=== PATIENT | male | born 1965 ===

== ENCOUNTER 2025-03-21 00:44 | Inpatient (IN) | payer OTHER ==
[2025-03-21] VITALS (9 sets, daily range): BP systolic 130–148; BP diastolic 73–99
[~2025-03-21] VITALS: Ht 182.9 cm; Wt 116.7 kg
[~2025-03-21 00:44] MED LIST: HYDROCODON-ACE1 EAC8 PO; METOPROLOL SUCC25 MG PO; MULTI VITAMIN1 EACH PO
[2025-03-21 01:40] LABS: BASOPHILS 0.7 % (0.2-1.2); EOSINOPHILS 1.6 % (0.8-7.0); LYMPHOCYTES 19.5 % (21.8-53.1); MCH 30.5 PG (25.7-32.2); MCHC 35.6 g/dL (32.3-36.5); MCV 85.7 fL (79.0-92.2); MONOCYTES 10.5 % (5.3-12.2); NEUTROPHILS 67.5 % (34.0-67.9); RBC 4.75 M/uL (4.63-6.08)
[2025-03-21] MEDS ORDERED: LACTATED RINGER'S 1,000 ML IV ONE (01:45)
[2025-03-21] MEDS ORDERED: LO-DOSE ASPIRIN81 MG PO (01:45)
[2025-03-21] MEDS ORDERED: VITAMIN D325 MCG PO (01:46)
[2025-03-21] MEDS ORDERED: NORVASC10 MG PO (01:46)
[2025-03-21 01:56] LABS: ALT (SGPT) 46.0 U/L (14-59); AST (SGOT) 11.0 U/L (15-37); GLOMERULAR FILTRATION RATE,EST 67.0 mL/min (>60); PROTEIN, TOTAL 7.9 g/dL (6.4-8.2); UREA NITROGEN 23.0 mg/dL (7-18)
[2025-03-21] MEDS ORDERED: HYDROmorphone HCL 1 MG/ML SYR IV PRN ×2 (02:45→03:00)
[2025-03-21] MEDS ORDERED: FAMOTIDINE 20 MG/ 2 ML VIAL IV ONE (03:00)
[2025-03-21] MEDS ORDERED: LACTATED RINGER'S 1,000 ML IV SCH ×2 (03:00→10:45)
--- NOTE | 2025-03-21 03:50 | NUR ---
pt ARRIVED TO THE FLOOR VIA STRETCHER. pt ABLE TO WALK TO THE BED, SBA. ASSESSMENT AND VITAL SIGNS DONE. IV ASSESSED, WNL. pt ADMISSION DONE. NG TUBE IN PLACE AND SECURED TO GOWN. pt NPO AT THIS TIME. pt DENIES ANY THIS TIME. CALL LIGHT WITHIN REACH. pt ORIENTATED TO .
--- NOTE | 2025-03-21 06:00 | EKG ---
[facility] [address] [place], [place] [address] Signed Normal sinus rhythm Minimal voltage criteria for LVH, may be normal variant ( R in aVL ) Inferior infarct , age undetermined Abnormal ECG When compared with ECG of 10-NOV-2022 02:32, No significant change was found Confirmed by WILL JORDAN MD ([id number]) on 03/21/2025 6:00:11 AM Electronically Signed By: WILL JORDAN 03/21/25 0600 PATIENT NAME: LAKSHMI LOVELL JR Electrocardiogram DATE OF : 69 PHYSICIAN: WILL JORDAN REPORT #: [id number] REPORT IS CONFIDENTIAL AND NOT TO BE RELEASED WITHOUT AUTHORIZATION
[2025-03-21] MEDS ORDERED: MENTHOL/CETYLPYRD CL 1 LOZ LOZENGE MM PRN (08:00)
--- NOTE | 2025-03-21 08:07 | NUR ---
Patient awake in bed, alert and oriented x3, no acute distress. Patient reports throat pain, new order for cepacol lozenge provided to pt. Patient denies nausea at this time. NG to LIWS, pt reports improved abdominal pain post NG placement. No further needs, pt instructed to call staff if he has needs.
--- NOTE | 2025-03-21 10:24 | NUR ---
Cepacol lozange admin to patient for throat discomfort. Dr. Avelar at bedside discussing plan of care with patient.
[2025-03-21] MEDS ORDERED: FAMOTIDINE 20 MG/ 2 ML VIAL IV SCH (10:41)
[2025-03-21] MEDS ORDERED: KETOROLAC TROMETHAMINE 30 MG/ML VIAL IV PRN (10:45)
[2025-03-21] MEDS ORDERED: MENTHOL/CETYLPYRD CL 1 LOZ LOZENGE PO PRN (10:45)
[2025-03-21] MEDS ORDERED: SUCRALFATE 1 GM TAB PO SCH (10:45)
--- NOTE | 2025-03-21 11:02 | NUR ---
INTO SEE PATIENT. PERSONAL HEALTH INFORMATION REVIEWED. PATIENT LIVES AT HOME WITH . TWO STEPS INTO THE HOME. PATIENT DOES NOT HAVE DME. DOES NOT HAVE DIFFCULTY PAYING UTLITIES OR GETTING FOOD. DOES DRIVE. DENIES ANY CM NEEDS.
--- NOTE | 2025-03-21 11:25 | NUR ---
Admin toradol 30mg iv at this time for throat pain.
[2025-03-21] MEDS ORDERED: POTASSIUM CHLORIDE 20 MEQ in DEXTROSE 5% 250 ML IV SCH (11:30)
--- NOTE | 2025-03-21 12:00 | NUR ---
Patient ambulating in hallway, tolerating well.
--- NOTE | 2025-03-21 13:02 | NUR ---
PATIENT WASHED HIS FACE. PUT A SPONGE AND MOUTH WASH ON HIS SIDE TABLE.
--- NOTE | 2025-03-21 13:25 | NUR ---
In with pt for introductions after pt report received from GRETCHEN Helms. Pt is resting in bed with HOB elevated, laying on his left side, using his cell phone. Reconnected NGT to LIWS. IVF running at ordered rates. Pt requests a popsicle at this time. White board updated.
--- NOTE | 2025-03-21 15:56 | NUR ---
MED REC COMPLETE
--- NOTE | 2025-03-21 19:45 | NUR ---
REPORT RECEIVED FROM DAY SHIFT RN. PATIENT DENIES NEEDS AT THIS TIME. CALL LIGHT IN REACH.
--- NOTE | 2025-03-21 19:47 | NUR ---
Pt showered, back to bed, tele back in place, back to LIWS NGT. warm tea given
--- NOTE | 2025-03-21 20:26 | NUR ---
CALL PLACED TO MD AMADO REGARDING PATIENTS THROAT PAIN. NEW ORDER RECEIVED. VERIFIED USING REPEATBACK METHOD.
[2025-03-21] MEDS ORDERED: phenoL 177 ML SPRAY MT PRN (20:30)
--- NOTE | 2025-03-21 20:47 | NUR ---
PATIENT RESTING IN BED WITH VISITOR IN ROOM. VS AND I&Os OBTAINED AND RECORDED. ASSESSMENT COMPLETE. PATIENT DENIES ABD PAIN. NO FURTHER NEEDS AT THIS TIME. CALL LIGHT IN REACH.
[2025-03-22] VITALS (10 sets, daily range): BP systolic 140–154; BP diastolic 71–96
--- NOTE | 2025-03-22 00:59 | NUR ---
PATIENT RESTING IN BED. VS AND I&Os OBTAINED AND RECORDED. PATIENT REQUESTING THROAT LOSENGE. PRN MEDICATION ADMINISTERED. POPSICLE PROVIDED FOR COMFORT. PATIENT DENIES FURTHER NEEDS. CALL LIGHT IN REACH.
--- NOTE | 2025-03-22 04:46 | NUR ---
PATIENT RESTING IN BED. REPORTING 8/10 THROAT PAIN. PRN PAIN MEDICATION ADMINISTERED. VS AND I&Os OBTAINED AND RECORDED. PATIENT DENIES FURTHER NEEDS AT THIS TIME. NGT SET AT LIWS. CALL LIGHT IN REACH. IV FLUSHES WNL.
[2025-03-22 05:26] LABS: BASOPHILS 0.6 % (0.2-1.2); EOSINOPHILS 1.8 % (0.8-7.0); LYMPHOCYTES 15.1 % (21.8-53.1); MCH 30.5 PG (25.7-32.2); MCHC 35.3 g/dL (32.3-36.5); MCV 86.3 fL (79.0-92.2); MONOCYTES 10.9 % (5.3-12.2); NEUTROPHILS 71.4 % (34.0-67.9); RBC 4.17 M/uL (4.63-6.08)
[2025-03-22 05:39] LABS: GLOMERULAR FILTRATION RATE,EST 96.0 mL/min (>60); UREA NITROGEN 11.0 mg/dL (7-18)
--- NOTE | 2025-03-22 06:42 | NUR ---
PATIENT RESTING IN BED ON BACK WITH EYES CLOSED. RESPIRATIONS EVEN AND UNLABORED. CALL LIGHT IN REACH.
--- NOTE | 2025-03-22 07:01 | NUR ---
Pt report received from GRETCHEN Ortiz. Pt exits the room after visiting with him after her shift at work. Pt is resting on his left side, A&O, and states, "I'm telling the doctor, no more pills". He reports that it feels like the pills, even when crushed in pudding or applesauce or dissolved in warm water make it feel like they're cutting his throat. He complains that nothing makes it feel better for long. Reinforced education on NGT, advising him that they aren't supposed to feel good and that they may feel somewhat uncomfortable. Pt has used throat lozenges, throat spray, hot tea (small amounts), small amounts of iced water but states that they don't work for long. Pt denies needs at this time. White board updated. Call light in reach.
--- NOTE | 2025-03-22 07:42 | NUR ---
Pt transported to imaging for xray by staff via wheelchair. NGT clamped, IV S/L
--- NOTE | 2025-03-22 08:37 | NUR ---
PATIENT IN BED AT THIS TIME. FASHION COORDINATOR CHARTED HOURLY ROUNDS. CALL LIGHT WITHIN REACH, NO FURTHER NEEDS.
--- NOTE | 2025-03-22 09:44 | NUR ---
PATIENT IN BED AT THIS TIME. SHAREPOINT ENGINEER CHARTED VITALS AND I&O'S. CALL LIGHT WITHIN REACH, NO FURTHER NEEDS.
--- NOTE | 2025-03-22 10:08 | NUR ---
PT CALLS AND STATES, "I NEED MY NURSE TO LOOK AT SOMETHING". PRIMARY RN WITH ANOTHER PT AT THIS TIME, THIS RN TO BEDSIDE TO ASSIST. PT STATES, "I WILL WAIT FOR MY NURSE TO COME, IT'S FINE". PRIMARY RN UPDATED, PT STATES NO FURTHER NEEDS AT THIS TIME. CALL LIGHT WITHIN REACH.
--- NOTE | 2025-03-22 12:55 | NUR ---
PT USES CALL LIGHT, STATES HE NEEDS TO USE RESTROOM, NG TUBE CLAMPED FOR PT TO AMBULATE TO RESTROOM. PT STATES HE WOULD LIKE NEXT AVAILABLE PAIN MEDICATION, PRIMARY RN UPDATED. PT STATES NO OTHER NEEDS AT THIS TIME, CALL LIGHT WITHIN REACH.
--- NOTE | 2025-03-22 13:35 | HP ---
[facility] [address] [place], [place] [address] Signed ADMISSION DATE: 03/21/2025 REASON FOR ADMISSION: Small bowel obstruction. 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 He has had several days of increasing and variable abdominal pain with occasions of vomiting and nausea followed by clearance. His symptoms worsened and he presented to the emergency room at approximately 1 a.m., evaluated by Dr. Ruiz. He is known to have had a cholecystectomy by Dr. Aj Torres in October of 2022 more than two years ago. He has never had bowel obstruction in the past. Evaluation in the emergency room included a CT scan which showed a high-grade distal small-bowel obstruction with a transition point in the right lower abdomen. The sigmoid and descending colon had diverticula without sign of inflammation and some fatty liver noted. The patient has had soreness of his throat Dominantly, is not complaining of abdominal pain at this time, having had a nasogastric tube decompression. An EKG was noted to have Q-waves in the inferior leads 2, 3 and AVF, which were present in October 2022 and unchanged. He has no evidence of myocardial infarction at this time. His other medical issues include hypertension. ALLERGIES: He has no known drug allergies. PAST SURGICAL HISTORY: Includes left shoulder operation in the past as well as laparoscopic cholecystectomy as noted. CURRENT MEDICINES: Include 1. Aspirin. 2. Amlodipine. 3. Vitamin D3. 4. Multivitamin. 5. Metoprolol. SOCIAL HISTORY: He lives in [place] as previously noted. 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 He is . He has a daughter who works in the [employer]. Electronically Signed By: VANNESA AMADO MD 03/22/25 4190 PATIENT NAME: LAKSHMI LOVELL JR HISTORY AND PHYSICAL DATE OF : 69 REPORT #: [id number] PHYSICIAN: VANNESA AMADO MD PCP: SAMY PICKARD MD REPORT IS CONFIDENTIAL AND NOT TO BE RELEASED WITHOUT AUTHORIZATION [facility] [address] [place], [place] [address] Signed REVIEW OF SYSTEMS: LUNGS: He denies any shortness of breath or chest pain. ABDOMEN: Abdominal pain is minimal at this time. EXTREMITIES: Without complaint of pain. PHYSICAL EXAMINATION: GENERAL: Large white man who looks to be reasonably comfortable. VITAL SIGNS: Temperature at this time is 98.2, pulse is 98, blood pressure 146/90. HEENT: Nasogastric tube was draining thin green bilious fluid. Trachea is midline. He has no hoarseness. CHEST: Clear HEART: Regular without murmur. ABDOMEN: Somewhat obese, but soft. Palpation throughout shows no focal tenderness, mass or ascites. Provocative palpation in the right lower abdomen continues to be benign. EXTREMITIES: Show no clubbing, cyanosis, or edema. LABORATORY STUDIES: Show a white count of 8.58, hematocrit 40.7, platelets 284,000. Chem profile with a potassium low at 3.2, creatinine is normal at 1.24, glucose 131. Liver enzymes normal. Globulin 4.2, elevated lipase 17. Urinalysis was not received. Imaging study included a chest x-ray which was considered normal with a nasogastric tube tip terminating in the gastric fundus. Left basilar linear airspace disease, possibly atelectasis. CT scan of the abdomen confirmed small bowel obstruction with multiple dilated loops of small bowel and a transition point in the right lower abdomen as easily identified. He had fatty liver as well. There were diverticula of the sigmoid and left colon. ASSESSMENT: The patient has a small-bowel obstruction with the only previous operation being a laparoscopic cholecystectomy. He has improved with nasogastric tube decompression, IV fluids and bowel rest. His biggest complaint currently is his sore throat from the nasogastric tube. I discussed with him the pathophysiology of small bowel obstruction and his usual causes; it would be unusual for a laparoscopic cholecystectomy to be implicated in the bowel obstruction. Therefore, he may have some other cause. In any case, he is improving and has no tenderness or even complaint of pain of the abdomen currently. Options of management reviewed with him including immediate surgical intervention, laparoscopy/laparotomy versus observation and possible resolution of the obstruction on its own. He is more inclined to the latter. PLAN: Electronically Signed By: VANNESA AMADO MD 03/22/25 1335 PATIENT NAME: LAKSHMI LOVELL JR HISTORY AND PHYSICAL DATE OF : 69 REPORT #: [id number] PHYSICIAN: VANNESA AMADO MD PCP: SAMY PICKARD MD REPORT IS CONFIDENTIAL AND NOT TO BE RELEASED WITHOUT AUTHORIZATION [facility] [address] [place] [phone] Signed We will continue nasogastric tube decompression. We will implement measures for soreness of his nasogastric tube including clear liquids, Carafate slurry and of course Cepacol lozenges. We will repeat KUB in a.m. If he does not have reasonable progress within 24 hours, operative intervention would be more strongly considered. If symptoms worse in the meantime, operative intervention can be initiated at any time. We discussed all this also. MD DERRICK Mobley/TAVO /[id number] cc: Dr. Terell Ruiz Copies: ~ Electronically Signed By: VANNESA AMADO MD 03/22/25 1335 PATIENT NAME: LAKSHMI LOVELL JR HISTORY AND PHYSICAL DATE OF : 69 REPORT #: [id number] PHYSICIAN: VANNESA AMADO MD PCP: SAMY PICKARD MD REPORT IS CONFIDENTIAL AND NOT TO BE RELEASED WITHOUT AUTHORIZATION
--- NOTE | 2025-03-22 13:44 | NUR ---
PT SITTING UP IN BED, C/O PAIN TO THROAT 12/29. PRN MEDS GIVEN ORDERED. NO OTHER NEEDS IDENTIFIED AT THIS TIME. CALL LIGHT WITHIN REACH.
--- NOTE | 2025-03-22 18:16 | NUR ---
TOOK BP TWICE, STARTED ON THE LEFT ARM AND IT WAS 164/92, HAD PT UNCROSS LEGS AND SWITCHED ARMS, LEFT ARM WAS A LITTLE SWOLLEN DUE TO A PROBLEM WITH THE IV. ON THE RIGHT ARM THIS WAS THE BP. PT WAS RESTING IN BED, HEAD UP WATCHING TV. PT'S WAS IN ROOM BUT LEFT WE WERE DOING VITALS. CLEANED UP ROOM, EMPTIED TRASH AND PT ASKED FOR A POPCICLE - CHECKED ON OPTIONS AND CHECKED WITH NURSE - PT HAS CALL LIGHT AND REPORTS NEEDING NOTHING MORE AT THIS TIME.
--- NOTE | 2025-03-22 19:45 | NUR ---
PATIENT IS LAYING IN BED WAS PROVIDED WITH A WARM WASHCLOTH. PATIENT STATED HE WOULD BRUSH HIS TEETH LATER. CALL LIGHT IS WITHIN REACH AND NO FURTHER NEEDS AT THIS TIME.
--- NOTE | 2025-03-22 20:04 | NUR ---
awake, alert and oriented to all. On room air. NGT clamped for SBFT, next DI pic due 2099. NPO with sips of fluids, uses cepacol lozenders and spray. telein place. Abd soft upper and slightly tender and firmer lower abd. IVF infusing w/o problems. No c/o pain at this time
--- NOTE | 2025-03-22 21:28 | NUR ---
BACK FROM DI VIA W/X. RECEIVED PHONE CALL FROM DR AMADO. "OK TO PULL NGT TONIGHT. SIPS, ONLY SIPS OF CLEARS TONIGHT AND CAN HAVE A CLEAR LIQUID DIET IN THE MORNING"
--- NOTE | 2025-03-22 21:46 | NUR ---
PT SITTING EDGE OF BED, NGT PULLED, TOLERATED WELL, PROCEDURE EXPLAINED. NO C/O PAIN. AWARE OF CLEAR LIQUIDS IN AM AND ONLY VERY SMALL SIPS OF LIQUIDS FOR TONIGHT, STATED UNDERSTANDING, IVF INFUSING RW AREA. UP TO BRP
--- NOTE | 2025-03-22 22:26 | NUR ---
MEDICATED WITH TORADOL PER C/O THROAT PAIN,
--- NOTE | 2025-03-22 23:39 | NUR ---
PT RESTING, EYES CLOSED, NO S/SX DISTRESS. IVF INFUSING W/O PROBLEMS. TURNS AND REPOSITIONS SELF IN BED
[2025-03-23] VITALS (11 sets, daily range): BP systolic 138–151; BP diastolic 73–96
[2025-03-23 01:02] LABS: BLOOD/HGB, URINE NEGATIVE (Negative); KETONE, URINE SMALL (Negative); LEUK ESTERASE, URINE NEGATIVE (negative); NITRITE, URINE NEGATIVE (negative)
--- NOTE | 2025-03-23 01:26 | NUR ---
UA SENT TO LAB.
--- NOTE | 2025-03-23 04:44 | NUR ---
Resting, eyes closed, IVF infusing w/o problems, tele#[address]/SR.
--- NOTE | 2025-03-23 05:15 | NUR ---
AWAKE, TOLERATING SIPS OF CLEARS AT THIS TIME. NO N/V, POPSICLE GIVEN ON REQUESTS. INDEPENDENT IN ROOM, IVF INFUSING, TELE#[address] SR-ST AT TIMES, DENIES CP, NO C/O ABD PAIN AT THIS TIME, HAS HAD SEVERAL LOOSE STOOLS
--- NOTE | 2025-03-23 06:23 | NUR ---
resting, awakens easily, no c/o CP or abd pain, tele in place SR, IVF infusing w/o problems
--- NOTE | 2025-03-23 08:14 | NUR ---
REPORT RECEIVED. PATIENT IN BED, CALL LIGHT IN REACH. PATIENT DENIES CONCERNS.
--- NOTE | 2025-03-23 09:40 | NUR ---
PATIENT IN CHAIR. PATIENT AMBULATED TO RESTROOM AND BACK TO CHAIR. SCHEDULED MEDICATIONS ADMINISTERED. CALL LIGHT AND PERSONAL BELONGINGS IN REACH OF PATIENT. PATIENT DENIES CONCERNS.
--- NOTE | 2025-03-23 11:05 | NUR ---
PATIENT IN CHAIR, CALL LIGHT IN REACH. MENU AND PATIENT EDUCATION PROVIDED ON NEW DIET ORDER. PATIENT VERBALIZED UNDERSTANDING AND DENIES QUESTIONS OR CONCERNS AT THIS TIME.
--- NOTE | 2025-03-23 13:34 | NUR ---
PATIENT IN CHAIR. CALL LIGHT IN REACH. ASSESMENT COMPLETE. SCHEDULED MEDICATION ADMINISTERED. PATIENT DENIES CONCERNS.
--- NOTE | 2025-03-23 15:00 | NUR ---
PATIENT AMBULATING HALLS.
--- NOTE | 2025-03-23 15:57 | NUR ---
PATIENT IN BED, CALL LIGHT IN REACH. PATIENT DENIES CONCERNS AT THIS TIME.
--- NOTE | 2025-03-23 16:24 | NUR ---
PATIENT IN BED, CALL LIGHT IN REACH.
--- NOTE | 2025-03-23 17:23 | NUR ---
PATIENT AMBULATING HALLS.
--- NOTE | 2025-03-23 17:32 | NUR ---
HOURLY ROUNDING PATIENT IS LAYING IN BED, NO REQUEST FROM PATIENT AT THIS TIME CALL LIGHT WHITE BEEN POLACED WITHIN REACH
--- NOTE | 2025-03-23 17:40 | NUR ---
PATIENT IN BED, CALL LIGHT IN REACH. PROVIDED PATIENT WITH FRESH ICE WATER AT HIS REQUEST. PATIENT DENIES CONCERNS.
--- NOTE | 2025-03-23 19:18 | NUR ---
Pt was walking hallways. no c/o abd pain or n/v. tele#[address] SR
--- NOTE | 2025-03-23 20:05 | NUR ---
pt awake, in bed, had been walking hallways earlier, tolerated well. on room air, clear lungs bilat, tele#[address] at this time, regular rhythm and rate. abd mild distention lower abd, MADAI, has had several bm's this shift. Does own care, voiding QS. Tolerating soft diet, no c/o pain. SL RW area patent.
--- NOTE | 2025-03-23 20:24 | NUR ---
pT WANTED A SHOWER, TELE OFF AT THIS TIME FOR SHOWER.
--- NOTE | 2025-03-23 21:00 | NUR ---
PT SHOWERED AND SHAVED SELF. TELE BACK ON, INDEPENDENT IN ROOM. BACK TO BED
--- NOTE | 2025-03-23 23:36 | NUR ---
Resting, on room air, repositions self in bed. tele#6 in place, SR. Independent in room
[2025-03-24] VITALS (7 sets, daily range): BP systolic 139–152; BP diastolic 79–95
--- NOTE | 2025-03-24 05:49 | NUR ---
VS AND I&O COMPLETED. PT STATES NO NEED AT THIS RAFAEL. CALL LIGHT IN REACH.
--- NOTE | 2025-03-24 07:00 | NUR ---
Pt report received from GRETCHEN Wild. Pt is sitting up in the chair in his room, A&O, watching television, preparing to place a breakfast order. Pt states he is passing gas, still having BMs, voiding fine, slept well, and is not having any pain. Call light and personal belongings in reach.
--- NOTE | 2025-03-24 07:30 | NUR ---
INTO SEE PATIENT. PATIENT UP IN THE CHAIR. STATES HE IS FEELING MUCH BETTER AND IS IN HOPES OF D/C TODAY. WILL PICK HIM UP AT TIME OF DISCHARGE NO FUTHER NEEDS.
--- NOTE | 2025-03-24 07:37 | NUR ---
UR RETRO CLINICAL REVIEW FOR 03/21/25: MCG-PER MCG REVIEW MEETS INPT FOR SBO WITH NEED FOR NG, IVF AND IV MEDICATIONS. [facility] INPT 03/21/25 @ 1042 ORDER MATCHES REG CLINICALS FAXED TO [place] FOR AUTH REVIEW DISCHARGE TO HOME WHEN STABLE 03/24/25
--- NOTE | 2025-03-24 09:34 | NUR ---
Instructed by Dr. Duque to discontinue pepcid and carafate. This pt will be discharged this afternoon and is tolerating meals well without pain.
--- NOTE | 2025-03-26 11:15 | DS ---
[facility] [address] [place], [place] [address] Signed ADMISSION DATE: 03/21/2025 DISCHARGE DATE: 03/24/2025 REASON FOR ADMISSION: Small bowel obstruction. 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 At presentation, he had several days of increasing and variable abdominal pain with occasions of vomiting and nausea followed by cessation. His symptoms worsened and he presented to emergency room at approximately 1:00 a.m., evaluated by Dr. Ruiz. He is known in the past and had cholecystectomy in October of [address] Torres. He has never had bowel obstruction in the past. He has no other abdominal operations. Evaluation in emergency room included a CT scan, which showed a high-grade distal small-bowel obstruction with a transition point in the right lower abdomen. He is admitted for further evaluation and care. PAST MEDICAL HISTORY: Notable for left shoulder operation as well as laparoscopic cholecystectomy. He does have underlying hypertension. MEDICINES: At admission include; 1. Aspirin. 2. Amlodipine. 3. Vitamin D3. 4. Multivitamin. 5. Metoprolol. HOSPITAL COURSE: A nasogastric tube was placed in the emergency room, which was immediately bothersome to him as it made his throat sore. It did decompress the stomach quite well and bilious fluid was noted. He was initiated on a Carafate slurry for symptom control of his sore throat in addition to the lozenges and spray and so on, but it was never correctly implemented and his nasogastric tube discomfort improved over time. He certainly had no ongoing abdominal pain following placement of the nasogastric tube. Followup abdominal x-ray showed persistence of dilation of loops of small bowel. On that basis, a surgeon small-bowel follow-through with Gastrografin contrast was undertaken over the weekend. Electronically Signed By: VANNESA AMADO MD 03/26/25 1115 PATIENT NAME: LAKSHMI LOVELL JR DISCHARGE SUMMARY DATE OF : 69 REPORT #: [id number] PHYSICIAN: VANNESA AMADO MD PCP: SAMY PICKARD MD REPORT IS CONFIDENTIAL AND NOT TO BE RELEASED WITHOUT AUTHORIZATION [facility] [address] [place] [id number] Signed This ultimately showed the passage into the colon at about 6 hours or less and accompanied by copious bowel movements as is often the case. A followup KUB on day of discharge showed no air-fluid levels, but did show small bowel loops containing some air. He has tolerated a regular diet, has no abdominal pain and absolutely no tenderness. Does not have excessive distention and feels ready for discharge. He understands well that if he should develop recurrent symptoms that he should let me know, at which point a prompt intervention for surgery would be likely. He wishes to return to work at the end of this week on Monday (today is Monday). That would be March 28. DISCHARGE DIAGNOSES: 1. Distal small bowel obstruction with transition point right lower quadrant with spontaneous resolution with bowel rest, IV fluids and nasogastric tube decompression. 2. Obesity. 3. History of laparoscopic cholecystectomy. 4. Hypertension. 5. Known sigmoid and left-sided diverticulosis. 6. Fatty liver disease. Followup plans, he is return to see me in approximately four weeks. We will set an appointment before he goes. DISCHARGE MEDICATIONS: He will restart his usual medications; 1. Multivitamin one tablet p.o. daily. 2. Aspirin 81 mg daily. 3. Amlodipine 10 mg p.o. daily. 4. Vitamin D3 25 mcg (50 mcg) daily. DISCHARGE DIAGNOSES: 1. Small bowel obstruction with resolution with conservative measures. 2. Obesity. 3. Hypertension. 4. Dyslipidemia. 5. History of cholecystectomy laparoscopic approach. Vannesa Amado MD Electronically Signed By: VANNESA AMADO MD 03/26/25 1115 PATIENT NAME: LAKSHMI LOVELL JR DISCHARGE SUMMARY DATE OF : 69 REPORT #: [id number] PHYSICIAN: VANNESA AMADO MD PCP: SAMY PICKARD MD REPORT IS CONFIDENTIAL AND NOT TO BE RELEASED WITHOUT AUTHORIZATION [facility] [address] [place], [place] [address] Signed DERRICK/TAVO /[id number] cc: Dr. Ruiz [facility] Emergency Room Dr. Samy Vergara [place] Copies: ~ Electronically Signed By: VANNESA AMADO MD 03/26/25 1115 PATIENT NAME: LAKSHMI LOVELL DISCHARGE SUMMARY DATE OF : 69 REPORT #: [id number] PHYSICIAN: VANNESA AMADO MD PCP: SAMY PICKARD MD REPORT IS CONFIDENTIAL AND NOT TO BE RELEASED WITHOUT AUTHORIZATION
== END 2025-03-24 14:15 | disposition home or self-care (01) | DRG 390 ==
LOC: ED 00:44 → MS 02:50
PROVIDERS: Internal Medicine; ADMIT Surgery; ATTEND Surgery
PROC: 0D9670Z Drainage of Stomach with Drainage Device, Via Natural or Artificial Opening (ICD-10-PCS; principal; 2025-03-21)
DX: K56.609 Unspecified intestinal obstruction, unspecified as to partial versus complete obstruction (principal); K57.30 Diverticulosis of large intestine without perforation or abscess without bleeding; I10 Essential (primary) hypertension; E66.9 Obesity, unspecified; K76.0 Fatty (change of) liver, not elsewhere classified; E78.5 Hyperlipidemia, unspecified; E87.6 Hypokalemia; Z79.899 Other long term (current) drug therapy; Z90.49 Acquired absence of other specified parts of digestive tract; Z98.890 Other specified postprocedural states; Z79.82 Long term (current) use of aspirin; Z68.35 Body mass index [BMI] 35.0-35.9, adult
CPT/HCPCS: 36415; 71045; 74018; 74177; 74250; 80048; 80053; 81003; 83690; 83735; 85025; 93005; 93010; J1171; J1885; J2405; J3480; J7060; J7121; Q9967